=== PATIENT | female | born 1950 | race Caucasian/White ===

== ENCOUNTER → 2023-09-15 11:28 | Outpatient (REF) | payer MEDICARE, BC, SELFPAY | LOC: WDC 11:28 | PROVIDERS: ATTENDING PHYSICIAN Family Medicine | DX: Z78.0 Asymptomatic menopausal state (principal); Z12.31 Encounter for screening mammogram for malignant neoplasm of breast | CPT/HCPCS: 77063; 77067; 77080 ==

== ENCOUNTER → 2024-02-13 14:17 | Outpatient (REF) | payer MEDICARE, BC, SELFPAY | LOC: HWRAD 14:17 | PROVIDERS: ATTENDING PHYSICIAN Family Medicine | DX: M25.551 Pain in right hip (principal); M25.552 Pain in left hip | CPT/HCPCS: 72110; 73522 ==